=== PATIENT | male | born 1995 | race Native Hawaiian/Other Pacific Islander ===

== ENCOUNTER 2021-05-20 11:25 | Outpatient (CLI) | payer OTHER ==
[2021-05-20 11:45] LABS: PLATELET COUNT 249 K/uL (142-355)
[2021-05-20 12:07] LABS: POTASSIUM 4.2 mmol/L (3.6-5.2)
== END 2021-05-20 21:05 | disposition home or self-care (01) ==
LOC: LABW 11:25
PROVIDERS: ATTEND Internal Medicine
DX: E10.9 Type 1 diabetes mellitus without complications (principal); M25.511 Pain in right shoulder
CPT/HCPCS: 36415; 80053; 80061; 81000; 82043; 82570; 83036; 84439; 84443; 85027

== ENCOUNTER 2021-06-18 14:15 | Outpatient (CLI) | payer OTHER | END 2021-06-18 19:10 | disposition home or self-care (01) | LOC: MRI 14:15 | PROVIDERS: ATTEND Internal Medicine | DX: M25.511 Pain in right shoulder (principal) ==